=== PATIENT | male | born 1995 | race Caucasian/White ===

== ENCOUNTER 2018-05-24 20:01 | Emergency (ER) | payer BC ==
[2018-05-24 20:46] VITALS: BP 132/83
[2018-05-24] MEDS ORDERED: diPHENhydraMINE PO* 25 MG PO ONE (21:23)
--- NOTE | 2018-05-24 21:23 | UC ---
Skin Complaint HPI - HPI Summary HPI Summary: hive rash on arms and small amount on abdomen--itchy, raised red not otherwise sick---[place] prior to out break - History of Current Complaint Chief Complaint: UCRash Time Seen by Provider: 05/24/18 21:14 Stated Complaint: RASH Hx Obtained From: Patient Onset/Duration: Sudden Onset, Lasting Days - 2, Still Present Timing: Constant Pain Intensity: 0 Pain Scale Used: 0-10 Numeric Location: Diffuse Character: Pruritus Aggravating Factor(s): Nothing Alleviating Factor(s): Nothing Associated Signs & Symptoms: Positive: Rash Related History: Possible Reaction to: Environmental Exposure - Allergy/Home Medications Allergies/Adverse Reactions: Allergies Allergy/AdvReac Type Severity Reaction Status Date / Time No Known Allergies Allergy Unverified 05/24/18 20:46 Review of Systems Constitutional: Negative Skin: Rash - hives on both arms--small amount on back and abdomen Eyes: Negative ENT: Negative Respiratory: Negative Cardiovascular: Negative Gastrointestinal: Negative Genitourinary: Negative Motor: Negative Neurovascular: Negative Musculoskeletal: Negative Neurological: Negative Psychological: Negative Is Patient Immunocompromised?: No All Other Systems Reviewed And Are Negative: Yes PMH/Surg Hx/FS Hx/Imm Hx Previously Healthy: No - hydrops - Surgical History Surgical History: Yes Surgery Procedure, Year, and Place: 2 hernia - Family History Known Family History: Positive: None - Social History Occupation: Student Lives: With Family Alcohol Use: None Substance Use Type: None Smoking Status (MU): Never Smoked Tobacco Physical Exam Triage Information Reviewed: Yes Appearance: Well-Appearing, No Pain Distress, Well-Nourished Vital Signs: Initial Vital Signs Temp 98.2 F 05/24/18 20:40 Pulse 83 05/24/18 20:40 Resp 16 05/24/18 20:40 BP 132/83 05/24/18 20:40 Pulse Ox 100 05/24/18 20:40 Vital Signs Reviewed: Yes Eye Exam: Normal Eyes: Positive: Conjunctiva Clear ENT Exam: Normal ENT: Positive: Normal ENT inspection, Hearing grossly normal, Pharynx normal. Negative: Nasal congestion, Nasal drainage, Trismus, Muffled voice, Hoarse voice , Sinus tenderness Dental Exam: Normal Neck exam: Normal Neck: Positive: Supple, Nontender, No Lymphadenopathy Respiratory Exam: Normal Respiratory: Positive: Chest non-tender, Lungs clear, Normal breath sounds, No respiratory distress, No accessory muscle use Cardiovascular Exam: Normal Cardiovascular: Positive: RRR, Pulses Normal, Brisk Capillary Refill Musculoskeletal Exam: Normal Musculoskeletal: Positive: Strength Intact, ROM Intact, No Edema Neurological Exam: Normal Neurological: Positive: Alert, Muscle Tone Normal Psychological Exam: Normal Skin Exam: Normal Skin: Positive: rashes - red blanching urticaric rash Course/Dx - Course Course Of Treatment: cool compress, benadryl, prednisone follow with pcp prn - Diagnoses Provider Diagnoses: contact dermatitis Discharge - Sign-Out/Discharge Documenting (check all that apply): Patient Departure All imaging exams completed and their final reports reviewed: No Studies - Discharge Plan Condition: Stable Disposition: HOME Prescriptions: predniSONE [Prednisone 20 MG TAB] 40 mg PO QAM #6 tablet Patient Education Materials: Diphenhydramine (By mouth), Contact Dermatitis (ED ), Cold Compress or Soak (ED) Referrals: Lei Collins MD [Primary Care Provider] - If Needed - Billing Disposition and Condition Condition: STABLE Disposition: Home - Attestation Statements Provider Attestation: I was available for consult. This patient was seen by the [facility]. The patient was not presented to, seen by, or examined by me. -Ruth
[2018-05-24] MEDS ORDERED: predniSONE TAB* 20 MG PO ONE (21:24)
== END 2018-05-24 21:52 | disposition home or self-care (01) ==
LOC: UCEAST 20:01
DX: L25.9 Unspecified contact dermatitis, unspecified cause (principal)
CPT/HCPCS: 99213; A9270-GY; G0463; J7512